=== PATIENT | female | born 1965 | race Caucasian/White ===

== ENCOUNTER 2018-11-26 10:38 | Emergency (ER) | payer SELFPAY ==
[~2018-11-26] VITALS: Ht 180.3 cm; Wt 163.3 kg
[2018-11-26] MEDS ORDERED: DILTIAZEM 25 MG/5 ML INJ (CARDIZEM) VIAL IVP ONE (11:15)
[2018-11-26] MEDS ORDERED: NS IV 1000 ML 1,000 ML IV SCH (11:15)
--- NOTE | 2018-11-26 11:36 | ED General ---
General Stated Complaint: SWEATING,IRREGULAR HEART BEAT History of Present Illness Date Seen by Provider: November 26, 2018 Time Seen by Provider: 11:30 Initial Comments Patient is a 53-year-old female who awoke this morning at 4:00 with palpitations. She states she felt a little bit lightheaded and had some inexplicable diaphoresis. She went about her morning but her symptoms continued so she decided to come to the ER. No chest pain or shortness of breath. The patient has no heart history that she is aware of. She states she did have one episode several years earlier when she was evaluated for palpitations but was told she only had anxiety at that time. The only medication she takes his metoprolol twice daily. No recent fever or chills or cough. No recent travel. No nausea or vomiting. No abdominal pain. Allergies and Home Medications Allergies Coded Allergies: diphenhydramine (Verified Allergy, Unknown, 11/26/18) Patient Home Medication List Home Medication List Reviewed: Yes Review of Systems Review of Systems Constitutional: no symptoms reported EENTM: no symptoms reported Respiratory: no symptoms reported Cardiovascular: palpitations Genitourinary: no symptoms reported Musculoskeletal: no symptoms reported Skin: no symptoms reported Psychiatric/Neurological: No Symptoms Reported Hematologic/Lymphatic: No Symptoms Reported All Other Systems Reviewed Negative Unless Noted: Yes Physical Exam Vital Signs Capillary Refill : Height, Weight, BMI Height: '" Weight: lbs. oz. kg; BMI Method: General Appearance: No Apparent Distress, WD/WN HEENT: PERRL/EOMI, TMs Normal Neck: Full Range of Motion, Normal Inspection Respiratory: Chest Non Tender, Lungs Clear Cardiovascular: No Edema, No Gallop, No Murmur, Normal Peripheral Pulses (irregular and tachycardic heart rate in the 140s) Gastrointestinal: Normal Bowel Sounds Extremity: Normal Capillary Refill, Non Tender Neurologic/Psychiatric: Alert, Oriented x3 Skin: Normal Color Progress/Results/Core Measures Suspected Sepsis SIRS Temperature: Pulse: Respiratory Rate: Laboratory Tests 11/26/18 11:40: White Blood Count 8.3 Blood Pressure / Mean: Laboratory Tests 11/26/18 11:40: Creatinine 0.89, Platelet Count 263 Results/Orders Lab Results Laboratory Tests Test 11/26/18 11:40 11/26/18 13:40 Range/Units White Blood Count 8.3 4.3-11.0 10^3/uL Red Blood Count 4.81 4.35-5.85 10^6/uL Hemoglobin 14.1 11.5-16.0 G/DL Hematocrit 43 35-52 % Mean Corpuscular Volume 89 80-99 FL Mean Corpuscular Hemoglobin 29 25-34 PG Mean Corpuscular Hemoglobin Concent 33 32-36 G/DL Red Cell Distribution Width 13.5 10.0-14.5 % Platelet Count 263 130-400 10^3/uL Mean Platelet Volume 10.3 7.4-10.4 FL Neutrophils (%) (Auto) 71 42-75 % Lymphocytes (%) (Auto) 22 12-44 % Monocytes (%) (Auto) 6 0-12 % Eosinophils (%) (Auto) 1 0-10 % Basophils (%) (Auto) 1 0-10 % Neutrophils # (Auto) 5.9 1.8-7.8 X 10^3 Lymphocytes # (Auto) 1.8 1.0-4.0 X 10^3 Monocytes # (Auto) 0.5 0.0-1.0 X 10^3 Eosinophils # (Auto) 0.1 0.0-0.3 10^3/uL Basophils # (Auto) 0.0 0.0-0.1 10^3/uL Sodium Level 143 135-145 MMOL/L Potassium Level 4.2 3.6-5.0 MMOL/L Chloride Level 106 98-107 MMOL/L Carbon Dioxide Level 22 21-32 MMOL/L Anion Gap 15 H 5-14 MMOL/L Blood Urea Nitrogen 16 7-18 MG/DL Creatinine 0.89 0.60-1.30 MG/DL Estimat Glomerular Filtration Rate > 60 BUN/Creatinine Ratio 18 Glucose Level 124 H 70-105 MG/DL Calcium Level 9.2 8.5-10.1 MG/DL Troponin T 11 H 14 H <=10 NG/L Thyroid Stimulating Hormone (TSH) 2.31 0.35-4.94 UIU/ML My Orders Orders - EUNICE TRAVIS DO Cbc With Automated Diff (11/26/18 11:13) Basic Metabolic Panel (11/26/18 11:13) Troponin T (11/26/18 11:13) Ekg Tracing (11/26/18 11:13) Thyroid Stimulating Hormone (11/26/18 11:13) Ns Iv 1000 Ml (Sodium Chloride 0.9%) (11/26/18 11:15) Diltiazem Injection (Cardizem Injection) (11/26/18 11:15) Troponin T (11/26/18 13:40) Ekg Tracing (11/26/18 14:23) Medications Given in ED Current Medications Medications Dose Ordered Sig/Eusebio Route Start Time Stop Time Status Last Admin Dose Admin Diltiazem HCl 10 mg ONCE ONCE IVP 11/26/18 11:15 11/26/18 11:16 DC 11/26/18 12:04 10 MG Vital Signs/I&O Capillary Refill : Progress Note : Time: 11:32 Progress Note Patient is seen and examined. She is in no distress and has stable blood pressure but her heart rate is in the 140s and is irregular. IV fluids ordered along with basic labs and EKG. 13:30: Patient was given 1 dose of Cardizem IV. Her heart slowed to a normal sinus rhythm with a rate of 77. The patient had relief of symptoms. She was given 1 L of normal saline. Currently, her labs are reviewed. Her troponin is 11 which is 1 point outside the normal range by our lab standards. Will repeat troponin at the two-hour kalen. Thyroid studies are collected and sent to [facility] but will not be returned during this ED visit. 14:45: Second troponin continues to be mildly elevated but close to the upper limit of normal. It is not significantly elevating. Repeat EKG, the third EKG this ER visit, also reveals no changes and no ischemia. Patient does not have chest pain or shortness of breath. Plan is for discharge home. She is advised follow-up with her primary care doctor and follow-up on her thyroid study results. Otherwise, return to the emergency department for any new or worsening symptoms. ECG Initial ECG Impression Date: November 26, 2018 Initial ECG Impression Time: 11:05 Initial ECG Rhythm: S.Tach EKG : EKG Time: 12:20 Rate: 77 Rhythm: Normal Sinus Departure Impression Primary Impression: Sinus tachycardia Disposition: 01 HOME, SELF-CARE Condition: Improved Departure-Patient Inst. Referrals: ANNA BURGESS MD (PCP/Family) Primary Care Physician EUNICE TRAVIS DO November 26, 2018 11:36
[2018-11-26 11:52] LABS: HEMATOCRIT 43 % (35-52); HEMOGLOBIN 14.1 G/DL (11.5-16.0); MEAN CORPUSCULAR HEMOGLOBIN 29 PG (25-34); MEAN CORPUSCULAR HGB CONC 33 G/DL (32-36); MEAN CORPUSCULAR VOLUME 89 FL (80-99); MEAN PLATELET VOLUME 10.3 FL (7.4-10.4); PLATELET COUNT 263 10^3/uL (130-400); RED CELL DISTRIBUTION WIDTH 13.5 % (10.0-14.5); WHITE BLOOD COUNT 8.3 10^3/uL (4.3-11.0)
[2018-11-26 11:53] LABS: BASOPHILS % (AUTO) 1 % (0-10); EOSINOPHILS # (AUTO) 0.1 10^3/uL (0.0-0.3); EOSINOPHILS % (AUTO) 1 % (0-10); LYMPHOCYTES # (AUTO) 1.8 X 10^3 (1.0-4.0); LYMPHOCYTES % (AUTO) 22 % (12-44); MONOCYTES # (AUTO) 0.5 X 10^3 (0.0-1.0); MONOCYTES % (AUTO) 6 % (0-12); NEUTROPHILS # (AUTO) 5.9 X 10^3 (1.8-7.8); NEUTROPHILS % (AUTO) 71 % (42-75)
[2018-11-26 12:15] LABS: BUN/CREATININE RATIO 18; CALCIUM 9.2 MG/DL (8.5-10.1); CARBON DIOXIDE 22 MMOL/L (21-32); CHLORIDE 106 MMOL/L (98-107); CREATININE SERUM 0.89 MG/DL (0.60-1.30); GFR ESTIMATED > 60; GLUCOSE 124 MG/DL (70-105); POTASSIUM 4.2 MMOL/L (3.6-5.0); SODIUM 143 MMOL/L (135-145)
[2018-11-26 15:18] VITALS: BP 153/93
== END 2018-11-26 15:25 | disposition home or self-care (01) ==
LOC: ER FS 10:40
DX: R00.0 Tachycardia, unspecified (principal); F41.9 Anxiety disorder, unspecified; Z88.8 Allergy status to other drugs, medicaments and biological substances
CPT/HCPCS: 36415; 80048; 84443; 84484; 85025; 93005

== ENCOUNTER 2019-08-16 10:07 | Emergency (ER) | payer SELFPAY ==
[~2019-08-16] VITALS: Ht 180.3 cm; Wt 142.3 kg
--- NOTE | 2019-08-16 10:12 | ED General ---
General Stated Complaint: IRREGULAR HEARTBEAT History of Present Illness Date Seen by Provider: Aug 16, 2019 Time Seen by Provider: 10:11 Initial Comments Patient presenting to emergency department for evaluation of palpitations that she says she started feeling last evening and they lasted all the way through the night but she was able to sleep through it and there were present again this morning when she woke up. She said it felt like a rapid heartbeat that she could not measure. She said she put some sort of blood pressure cuff on and her heart rate trended in the 140 range and it said irregular. She says that she took her metoprolol earlier this morning and decided to come to the emergency department for evaluation and that her palpitations stopped shortly after arriving here. She says that she had no other symptoms besides the palpitations including no chest pain shortness of breath diaphoresis nausea vomiting. She said she may have had several bowel movements last night and her palpitations may have started during one of the bowel movements. She says that she had this twice before in the past and the first time she saw a provider network analyst and had an echocardiogram and heart monitor that came back normal and the second time she was seen here on November 26, 2018 and it appears there are for EKGs in the system. It appears that the computer called her first EKG atrial fibrillation with RVR and she was given a dose of 10 mg of Cardizem and her heart rate changed shortly afterwards to a normal sinus rhythm. I reviewed the EKG and it is somewhat difficult to interpret as the baseline wavers and his rapid I feel that I'm seeing P waves this could be an a flutter certainly atrial for ablation is a possibility as well as there is irregular intervals in between her QRS complexes. She is currently in no obvious distress with normal vital signs. Allergies and Home Medications Allergies Coded Allergies: diphenhydramine (Verified Allergy, Unknown, 11/26/18) Patient Home Medication List Home Medication List Reviewed: Yes Review of Systems Review of Systems Constitutional: no symptoms reported EENTM: no symptoms reported Respiratory: no symptoms reported Cardiovascular: palpitations Gastrointestinal: no symptoms reported Genitourinary: no symptoms reported Musculoskeletal: no symptoms reported Skin: no symptoms reported Psychiatric/Neurological: No Symptoms Reported All Other Systems Reviewed Negative Unless Noted: Yes Past Ufkdsmw-Knbjzr-Ujjoqx Hx Patient Social History 2nd Hand Smoke Exposure: No Recent Foreign Travel: No Seasonal Allergies Seasonal Allergies: No Past Medical History Surgeries: Yes Gallbladder, Tonsillectomy Respiratory: No Cardiac: Yes Hypertension Neurological: No Genitourinary: No Gastrointestinal: Yes Gastroesophageal Reflux, Hiatal Hernia Musculoskeletal: No Endocrine: No HEENT: No Cancer: No Psychosocial: Yes Anxiety Integumentary: No Blood Disorders: No Physical Exam Vital Signs Vital Signs - First Documented 08/16/19 10:19 Temp 36.7 Pulse 82 Resp 22 B/P (MAP) 125/80 (95) Pulse Ox 98 O2 Delivery Room Air Capillary Refill : Height, Weight, BMI Height: 5'11.00" Weight: 360lbs. oz. 163.273043sr; BMI Method:Stated General Appearance: No Apparent Distress, WD/WN HEENT: PERRL/EOMI Neck: Supple Respiratory: Normal Breath Sounds, No Respiratory Distress Cardiovascular: Regular Rate, Rhythm, No Edema, No Murmur Gastrointestinal: Soft Back: Normal Inspection Extremity: Normal Capillary Refill Neurologic/Psychiatric: Alert, Oriented x3 Skin: Warm/Dry Progress/Results/Core Measures Suspected Sepsis SIRS Temperature: Pulse: Respiratory Rate: Laboratory Tests 08/16/19 10:54: White Blood Count 8.7 Blood Pressure / Mean: Laboratory Tests 08/16/19 10:54: Creatinine 1.03, INR Comment 0.9, Platelet Count 288, Total Bilirubin 0.4 Results/Orders Lab Results Laboratory Tests Test 08/16/19 10:54 Range/Units White Blood Count 8.7 4.3-11.0 10^3/uL Red Blood Count 5.09 4.35-5.85 10^6/uL Hemoglobin 15.2 11.5-16.0 G/DL Hematocrit 46 35-52 % Mean Corpuscular Volume 90 80-99 FL Mean Corpuscular Hemoglobin 30 25-34 PG Mean Corpuscular Hemoglobin Concent 33 32-36 G/DL Red Cell Distribution Width 14.2 10.0-14.5 % Platelet Count 288 130-400 10^3/uL Mean Platelet Volume 10.1 7.4-10.4 FL Neutrophils (%) (Auto) 63 42-75 % Lymphocytes (%) (Auto) 27 12-44 % Monocytes (%) (Auto) 7 0-12 % Eosinophils (%) (Auto) 1 0-10 % Basophils (%) (Auto) 1 0-10 % Neutrophils # (Auto) 5.5 1.8-7.8 X 10^3 Lymphocytes # (Auto) 2.4 1.0-4.0 X 10^3 Monocytes # (Auto) 0.6 0.0-1.0 X 10^3 Eosinophils # (Auto) 0.1 0.0-0.3 10^3/uL Basophils # (Auto) 0.1 0.0-0.1 10^3/uL Prothrombin Time 13.0 12.2-14.7 SEC INR Comment 0.9 0.8-1.4 Activated Partial Thromboplast Time 24 24-35 SEC Sodium Level 141 135-145 MMOL/L Potassium Level 4.5 3.6-5.0 MMOL/L Chloride Level 103 98-107 MMOL/L Carbon Dioxide Level 28 21-32 MMOL/L Anion Gap 10 5-14 MMOL/L Blood Urea Nitrogen 25 H 7-18 MG/DL Creatinine 1.03 0.60-1.30 MG/DL Estimat Glomerular Filtration Rate 56 BUN/Creatinine Ratio 24 Glucose Level 111 H 70-105 MG/DL Calcium Level 9.5 8.5-10.1 MG/DL Corrected Calcium 9.4 8.5-10.1 MG/DL Magnesium Level 2.1 1.6-2.4 MG/DL Total Bilirubin 0.4 0.1-1.0 MG/DL Aspartate Amino Transf (AST/SGOT) 12 5-34 U/L Alanine Aminotransferase (ALT/SGPT) 22 0-55 U/L Alkaline Phosphatase 53 40-136 U/L Troponin I < 0.30 <0.30 NG/ML Pro-B-Type Natriuretic Peptide 1760.0 H <75.0 PG/ML Total Protein 7.0 6.4-8.2 GM/DL Albumin 4.1 3.2-4.5 GM/DL My Orders Orders - HEATHER BOSS DO Ekg Tracing (08/16/19 10:24) Cbc With Automated Diff (08/16/19 10:48) Comprehensive Metabolic Panel (08/16/19 10:48) Troponin I Fs (08/16/19 10:48) Probnp Fs (08/16/19 10:48) Partial Thromboplastin Time (08/16/19 10:48) Protime With Inr (08/16/19 10:48) Magnesium (08/16/19 10:48) Vital Signs/I&O 08/16/19 10:19 Temp 36.7 Pulse 82 Resp 22 B/P (MAP) 125/80 (95) Pulse Ox 98 O2 Delivery Room Air Capillary Refill : Progress Note : Progress Note I spoke to the provider network analyst application technical designer Dr. Gonzalez about patient's presentation and he agrees that this likely is in A. fib or a flutter given patient's presentation and prior EKG. Certainly SVT is a possibility as well as a sinus tach. He did recommend getting some blood work to evaluate for ischemia and he said if her troponin is negative she likely could follow-up as an outpatient and did recommend changing her from metoprolol to Cardizem and starting her on Eliquis for stroke prophylaxis. Patient was informed and she is agreeable to plan. Patient's troponin is normal and I do not suspect acute coronary syndrome however her BNP is elevated. BNP is likely elevated from her arrhythmia rather than heart failure in my opinion but she will likely need echocardiogram as an outpatient. She appears well with normal vital signs at 9 physical exam and workup so she will be discharged in stable condition an outpatient cartilage follow-up was made with Dr. Gonzalez for later this afternoon at 1:30 which would be 1 hour after her discharge. I will go ahead and prescribe her the medications and told her she can come back to emergency department at any time with any new or worsening concerns. Patient aware and agreeable with plan and verbalized understanding of the above instructions. Departure Impression Primary Impression: Palpitations Additional Impression: Elevated brain natriuretic peptide (BNP) level Disposition: 01 HOME, SELF-CARE Condition: Stable Departure-Patient Inst. Referrals: ANNA BURGESS MD (PCP/Family) Primary Care Physician Patient Instructions: Palpitations (DC) Add. Discharge Instructions: Wait until after seeing the provider network analyst to fill your meds to make sure he agrees with treatment plan. Thank you! Scripts Diltiazem HCl (Cardizem LA) 180 Mg Tab.er.24h 180 MG PO DAILY for 30 Days, TAB Prov: HEATHER BOSS DO 08/16/19 Apixaban (Eliquis) 5 Mg Tablet 5 MG PO BID for 30 Days, #60 TAB TAKE 2 TABLETS BID X 7 DAYS, THEN 1 TABLET BID Prov: HEATHER BOSS DO 08/16/19 HEATHER BOSS DO Aug 16, 2019 10:12
[2019-08-16 11:07] LABS: HEMATOCRIT 46 % (35-52); HEMOGLOBIN 15.2 G/DL (11.5-16.0); MEAN CORPUSCULAR HEMOGLOBIN 30 PG (25-34); MEAN CORPUSCULAR HGB CONC 33 G/DL (32-36); MEAN CORPUSCULAR VOLUME 90 FL (80-99); PLATELET COUNT 288 10^3/uL (130-400); RED CELL DISTRIBUTION WIDTH 14.2 % (10.0-14.5); WHITE BLOOD COUNT 8.7 10^3/uL (4.3-11.0)
[2019-08-16 11:08] LABS: BASOPHILS # (AUTO) 0.1 10^3/uL (0.0-0.1); BASOPHILS % (AUTO) 1 % (0-10); EOSINOPHILS # (AUTO) 0.1 10^3/uL (0.0-0.3); EOSINOPHILS % (AUTO) 1 % (0-10); LYMPHOCYTES # (AUTO) 2.4 X 10^3 (1.0-4.0); LYMPHOCYTES % (AUTO) 27 % (12-44); MEAN PLATELET VOLUME 10.1 FL (7.4-10.4); MONOCYTES # (AUTO) 0.6 X 10^3 (0.0-1.0); MONOCYTES % (AUTO) 7 % (0-12); NEUTROPHILS # (AUTO) 5.5 X 10^3 (1.8-7.8); NEUTROPHILS % (AUTO) 63 % (42-75)
[2019-08-16 11:21] LABS: INR 0.9 (0.8-1.4)
[2019-08-16 11:45] LABS: ALANINE AMINOTRANSFERASE 22 U/L (0-55); ALKALINE PHOSPHATASE 53 U/L (40-136); BUN/CREATININE RATIO 24; CALCIUM 9.5 MG/DL (8.5-10.1); CARBON DIOXIDE 28 MMOL/L (21-32); CHLORIDE 103 MMOL/L (98-107); CREATININE SERUM 1.03 MG/DL (0.60-1.30); GFR ESTIMATED 56; GLUCOSE 111 MG/DL (70-105); MAGNESIUM 2.1 MG/DL (1.6-2.4); POTASSIUM 4.5 MMOL/L (3.6-5.0); SODIUM 141 MMOL/L (135-145)
[2019-08-16 11:46] LABS: ALBUMIN 4.1 GM/DL (3.2-4.5); BILIRUBIN,TOTAL 0.4 MG/DL (0.1-1.0)
[2019-08-16] MEDS ORDERED: APIX5TAB PO (12:00)
[2019-08-16] MEDS ORDERED: DILT180T PO (12:00)
--- NOTE | 2019-08-16 12:09 | NUR ---
Appointment was made with Dr. Coleman today at 1330. Pt was informed to bring all medications (prescribed and over the counter), ID, insurance card (if she has one).
[2019-08-16 12:10] VITALS: BP 125/80
== END 2019-08-16 12:10 | disposition home or self-care (01) ==
LOC: EDUNIT# 10:07 → ER FS 10:08
DX: R00.2 Palpitations (principal); R79.89 Other specified abnormal findings of blood chemistry; I10 Essential (primary) hypertension; Z88.8 Allergy status to other drugs, medicaments and biological substances; Z90.89 Acquired absence of other organs
CPT/HCPCS: 36415; 80053; 83735; 83880; 84484; 85025; 85610; 85730; 93005

== ENCOUNTER → 2019-08-17 | Outpatient (CLI) | payer SELFPAY ==
[~2019-08-17] MED LIST: APIX5TAB PO; DILT180T PO
== END ==
LOC: LAB FS 09:18
PROVIDERS: ATTEND Internal Medicine Cardiovascular Disease
DX: I48.0 Paroxysmal atrial fibrillation (principal); E66.9 Obesity, unspecified; I10 Essential (primary) hypertension
CPT/HCPCS: 36415; 84443

== ENCOUNTER 2019-08-19 05:31 | Emergency (ER) | payer SELFPAY ==
[~2019-08-19] VITALS: Ht 180.3 cm; Wt 139.0 kg
--- NOTE | 2019-08-19 06:10 | ED Cardiac General ---
History of Present Illness General Chief Complaint: Cardiac/General Problems Stated Complaint: HIGH BLOOD PRESSURE Nursing Triage Note: PT. WAS SEEN IN THE ER LAST TUESDAY WITH A-FIB AND WAS SENT TO SEE A PAINT STOCKMAN ON TUESDAY AND WAS STARTED ON A NEW MEDICATION CALLED CARTIA. PT. STATED SHE CAN FEEL HER HEART BEATING AND THE BLOOD RUNNING THROUGH HER VEINS AND STATED SHE FEELS LIKE THERE IS SOMETHING WRONG. Source: patient History of Present Illness Date Seen by Provider: Aug 19, 2019 Time Seen by Provider: 06:05 Initial Comments Patient is a 54 y/o female who comes to the ER this morning c/o feeling palpitations and feeling "shaky." Patient had episodic symptoms overnight while trying to sleep. She describes feeling like her heart was "pounding" and beating faster than normal. C/o that she could feel her heart beat in her neck. Symptoms caused her to feel very anxious. She has had similar symptoms recently for which she was evaluated for three days earlier. Her workup was negative and she was subsequently evaluated by cardiology who placed her on diltiazem. She has known hx of a-fib for which she had recently been treated with metoprolol until a few days earlier. She denies chest pain, SOB, MACDONALD. She does have known hx of anxiety but feels these sx are different from her normal anxiety symptoms. Allergies and Home Medications Allergies Coded Allergies: diphenhydramine (Verified Allergy, Unknown, 11/26/18) hydrocodone (Verified Allergy, Unknown, 08/19/19) Home Medications Apixaban 5 Mg Tablet, 5 MG PO BID TAKE 2 TABLETS BID X 7 DAYS, THEN 1 TABLET BID Prescribed by: HEATHER BOSS on 08/16/19 1200 Diltiazem HCl 180 Mg Tab.er.24h, 180 MG PO DAILY Prescribed by: HEATHER BOSS on 08/16/19 1200 Patient Home Medication List Home Medication List Reviewed: Yes Review of Systems Review of Systems Constitutional: no symptoms reported EENTM: No Symptoms Reported Respiratory: No Symptoms Reported Cardiovascular: See HPI Gastrointestinal: No Symptoms Reported Musculoskeletal: no symptoms reported Skin: no symptoms reported Psychiatric/Neurological: Anxiety Endocrine: No Symptoms Reported All Other Systems Reviewed Negative Unless Noted: Yes Past Jkljziy-Pkfnwx-Ulybbm Hx Patient Social History 2nd Hand Smoke Exposure: No Recent Foreign Travel: No Contact w/Someone Who Travel: No Recent Infectious Disease Expo: No Recent Hopitalizations: No Physical Abuse: No Sexual Abuse: No Mistreated: No Fear: No Seasonal Allergies Seasonal Allergies: Yes Past Medical History Surgeries: Yes Gallbladder, Tonsillectomy Respiratory: No Cardiac: Yes Atrial Fibrillation, Hypertension Neurological: No Genitourinary: No Gastrointestinal: Yes Gastroesophageal Reflux, Hiatal Hernia Musculoskeletal: No Endocrine: No HEENT: No Cancer: No Psychosocial: Yes Anxiety Integumentary: No Blood Disorders: No Physical Exam Vital Signs Vital Signs - First Documented 08/19/19 05:40 Temp 36.1 Pulse 87 B/P (MAP) 135/96 (109) Pulse Ox 97 O2 Delivery Room Air Capillary Refill : Less Than 3 Seconds Height, Weight, BMI Height: 5'11.00" Weight: 360lbs. oz. 163.259396nc; 42.00 BMI Method:Stated General Appearance: No Apparent Distress, WD/WN Neck: Full Range of Motion Respiratory: Chest Non Tender, Lungs Clear Cardiovascular: Regular Rate, Rhythm, No JVD, No Murmur Extremity: Normal Capillary Refill Neurologic/Psychiatric: Alert, Oriented x3 Skin: Normal Color, Warm/Dry Progress/Results/Core Measures Results/Orders Lab Results Laboratory Tests Test 08/19/19 06:15 Range/Units Sodium Level 141 135-145 MMOL/L Potassium Level 4.2 3.6-5.0 MMOL/L Chloride Level 104 98-107 MMOL/L Carbon Dioxide Level 25 21-32 MMOL/L Anion Gap 12 5-14 MMOL/L Blood Urea Nitrogen 16 7-18 MG/DL Creatinine 0.83 0.60-1.30 MG/DL Estimat Glomerular Filtration Rate > 60 BUN/Creatinine Ratio 19 Glucose Level 115 H 70-105 MG/DL Calcium Level 9.4 8.5-10.1 MG/DL Troponin I < 0.30 <0.30 NG/ML My Orders Orders - EUNICE TRAVIS DO Ekg Tracing (08/19/19 06:04) Basic Metabolic Panel (08/19/19 06:04) Troponin I Fs (08/19/19 06:04) Vital Signs/I&O 08/19/19 05:40 Temp 36.1 Pulse 87 B/P (MAP) 135/96 (109) Pulse Ox 97 O2 Delivery Room Air Blood Pressure Mean: 109 Progress Progress Note : Time: 06:09 Progress Note Patient is seen and examined. Normal exam although she is anxious during the interview. She was offered anxiolytic medication but declines. Physical exam is normal. Vitals normal and EKG is NSR on telemetry. Will do EKG, trop, BMP. 06:45: All results reviewed. No acute findings. EKG normal. Vitals continue to be normal. No arrhythmia on telemetry. BMP stable. Trop not elevated. Plan is for d/c to home. Patient given reassurance that she is ok. Unclear etiology for her presentation. Recommended to f/u with PCP or medical accountant. Return to the ER prn. All of her questions are answered prior to d/c and she is agreeable to the plan of care. Initial ECG Impression Date: Aug 19, 2019 Initial ECG Impression Time: 06:11 Initial ECG Rate: 83 Initial ECG Impression: Normal Departure Impression Primary Impression: Atrial fibrillation Disposition: 01 HOME, SELF-CARE Condition: Stable Departure-Patient Inst. Referrals: ANNA BURGESS MD (PCP/Family) Primary Care Physician EUNICE TRAVIS DO Aug 19, 2019 06:10
[2019-08-19 06:39] LABS: BUN/CREATININE RATIO 19; CALCIUM 9.4 MG/DL (8.5-10.1); CARBON DIOXIDE 25 MMOL/L (21-32); CHLORIDE 104 MMOL/L (98-107); CREATININE SERUM 0.83 MG/DL (0.60-1.30); GFR ESTIMATED > 60; GLUCOSE 115 MG/DL (70-105); POTASSIUM 4.2 MMOL/L (3.6-5.0); SODIUM 141 MMOL/L (135-145)
[2019-08-19 06:46] VITALS: BP 137/67
--- OUTSIDE RECORDS SUMMARY | 2019-08-27 09:26 | XMS REPORT | Continuity of Care Document ---
Author Organization Unknown Address Unknown Phone Unavailable Allergies Active Description Code Type Severity Reaction Onset Reported/Identified Relationship to Patient Clinical Status Yes diphenhydramine [id number] D rug Allergy Unknown N/A 11/26/2018 Yes hydrocodone [id number] Drug Aller gy Unknown N/A 08/19/2019 Medications There is no data. Problems Date Dx Coded Attending Type Code Diagnosis Diagnosed By 11/26/2018 EUNICE TRAVIS DO, Ot F41 .9 ANXIETY DISORDER, UNSPECIFIED 11/26/2018 EUNICE TRAVIS DO Ot R00 .0 TACHYCARDIA, UNSPECIFIED 11/26/2018 EUNICE TRAVIS DO Ot Z88 .8 ALLERGY STATUS TO OTH DRUG/MEDS/BIOL SUB 11/28/2018 EUNICE TRAVIS DO, Ot F41 .9 ANXIETY DISORDER, UNSPECIFIED 11/28/2018 EUNICE TRAVIS DO Ot R00 .0 TACHYCARDIA, UNSPECIFIED 11/28/2018 EUNICE TRAVIS DO Ot Z88 .8 ALLERGY STATUS TO OTH DRUG/MEDS/BIOL SUB 08/16/2019 HEATHER BOSS DO Ot I10 ESSENTIAL (PRIMARY) HYPERTENSION 08/16/2019 HEATHER BOSS DO Ot R00 .2 PALPITATIONS 08/16/2019 HEATHER BOSS DO Ot R79.89 OTHER SPECIFIED ABNORMAL FINDINGS OF BLO 08/16/2019 HEATHER BOSS DO Ot Z88 .8 ALLERGY STATUS TO OTH DRUG/MEDS/BIOL SUB 08/16/2019 HEATHER BOSS DO Ot Z90.89 ACQUIRED ABSENCE OF OTHER ORGANS 08/20/2019 HEATHER BOSS DO Ot I10 ESSENTIAL (PRIMARY) HYPERTENSION 08/20/2019 HEATHER BOSS DO Ot R00 .2 PALPITATIONS 08/20/2019 HEATHER BOSS DO Ot R79.89 OTHER SPECIFIED ABNORMAL FINDINGS OF BLO 08/20/2019 HEATHER BOSS DO Ot Z88 .8 ALLERGY STATUS TO OTH DRUG/MEDS/BIOL SUB 08/20/2019 HEATHER BOSS DO Ot Z90.89 ACQUIRED ABSENCE OF OTHER ORGANS 08/20/2019 FRIDA MADRIGAL [facility], [facility] Ot E66.9 OBESITY, UNSPECIFIED 08/20/2019 FRIDA MADRIGAL [facility], [facility] Ot I10 ESSENTIAL (PRIMARY) HYPERTENSION 08/20/2019 FRIDA MADRIGAL [facility], [facility] Ot I48.0 PAROXYSMAL ATRIAL FIBRILLATION Procedures There is no data. Results Test Result Range Complete blood count (CBC) with automate d white blood cell (WBC) differential - 11/26/18 11:40 Blood leukocytes automated count (number/volume) 8.3 10*3/uL 4.3-11.0 Blood erythrocytes automated count (number/volume) 4.81 10*6/uL 4.35-5.85 Venous blood hemoglobin measurement (mass/volume) 14.1 g/dL 11.5-16.0 Blood hematocrit (volume fraction) 43 % 35-52 Automated erythrocyte mean corpuscular volume 89 [ foz_us] 80-99 Automated erythrocyte mean corpuscular h emoglobin (mass per erythrocyte) 29 pg 25-34 Automated erythrocyte mean corpuscular h emoglobin concentration measurement (mass/volume) 33 g/dL 32-36 Automated erythrocyte distribution width ratio 13. 5 % 10.0- 14.5 Automated blood platelet count (count/volume) 263 10*3/uL 130-400 Automated blood platelet mean volume measurement 10.3 [foz_us] 7.4-10.4 Automated blood neutrophils/100 leukocytes 71 % 42-75 Automated blood lymphocytes/100 leukocytes 22 % 12-44 Blood monocytes/100 leukocytes 6 % 0-12 Automated blood eosinophils/100 leukocytes 1 % 0-10 Automated blood basophils/100 leukocytes 1 % 0-10 Blood neutrophils automated count (number/volume) 5.9 10*3 1.8-7.8 Blood lymphocytes automated count (number/volume) 1.8 10*3 1.0-4.0 Blood monocytes automated count (number/volume) 0. 5 10*3 0.0-1.0 Automated eosinophil count 0.1 10*3/uL 0 .0-0.3 Automated blood basophil count (count/volume) 0.0 10*3/uL 0.0-0.1 Whole blood basic metabolic panel - 11/08 03/29 11:40 Serum or plasma sodium measurement (moles/volume) 143 mmol/L 135-145 Serum or plasma potassium measurement (moles/volume) 4.2 mmol/L 3.6-5.0 Serum or plasma chloride measurement (moles/volume) 106 mmol/L 98-107 Carbon dioxide 22 mmol/L 21-32 Serum or plasma anion gap determination (moles/volume) 15 mmol/L 5-14 Serum or plasma urea nitrogen measurement (mass/volume ) 16 mg/dL 7-18 Serum or plasma creatinine measurement (mass/volume) 0.89 mg/dL 0.60-1.30 Serum or plasma urea nitrogen/creatinine mass ratio 18 NRG Serum or plasma creatinine measurement w ith calculation of estimated glomerular filtration rate > NRG Serum or plasma glucose measurement (mass/volume) 124 mg/dL 70-105 Serum or plasma calcium measurement (mass/volume) 9.2 mg/dL 8.5-10.1 TROPONIN T - 11/26/18 11:40 TROPONIN T 11 % <=10 THYROID STIMULATING HORMONE - 11/26/18 1 1:40 THYROID STIMULATING HORMONE 2.31 u[iU]/mL 0.35-4.94 TROPONIN T - 11/26/18 13:40 TROPONIN T 14 % <=10 LIPID PANEL - 12/08/18 08:43 CHOLESTEROL, TOTAL 141 mg/dL <200 HDL CHOLESTEROL 54 mg/dL >50 TRIGLYCERIDES 81 mg/dL <150 LDL-CHOLESTEROL 71 mg/dL (calc) NRG CHOL/HDLC RATIO 2.6 (calc) <5.0 NON HDL CHOLESTEROL 87 mg/dL (calc) <130 CMP - 12/08/18 08:43 GLUCOSE 110 mg/dL 65-99 UREA NITROGEN (BUN) 16 mg/dL 7-25 CREATININE 0.79 mg/dL 0.50-1.05 eGFR NON-AFR. SWAZI 86 mL/min/1.73m2 > OR = 60 eGFR 100 mL/min/1.73m2 > OR = 60 BUN/CREATININE RATIO NOT APPLICABLE (calc) 6-22 SODIUM 137 mmol/L 135-146 POTASSIUM 4.3 mmol/L 3.5-5.3 CHLORIDE 106 mmol/L 98-110 CARBON DIOXIDE 20 mmol/L 20-32 CALCIUM 9.3 mg/dL 8.6-10.4 PROTEIN, TOTAL 6.8 g/dL 6.1-8.1 ALBUMIN 4.0 g/dL 3.6-5.1 GLOBULIN 2.8 g/dL (calc) 1.9-3.7 ALBUMIN/GLOBULIN RATIO 1.4 (calc) 1.0-2. 5 BILIRUBIN, TOTAL 0.7 mg/dL 0.2-1.2 ALKALINE PHOSPHATASE 49 U/L 33-130 AST 16 U/L 10-35 ALT 15 U/L 6-29 CBC - 12/08/18 08:43 WHITE BLOOD CELL COUNT 7.8 Thousand/uL 3 .8-10.8 RED BLOOD CELL COUNT 4.93 Million/uL 3.8 0-5.10 HEMOGLOBIN 14.5 g/dL 11.7-15.5 HEMATOCRIT 43.5 % 35.0-45.0 MCV 88.2 fL 80.0-100.0 MCH 29.4 pg 27.0-33.0 MCHC 33.3 g/dL 32.0-36.0 RDW 13.6 % 11.0-15.0 PLATELET COUNT 238 Thousand/uL 140-400 MPV 11.1 fL 7.5-12.5 ABSOLUTE NEUTROPHILS 4696 cells/uL 1500- 7800 ABSOLUTE LYMPHOCYTES 2356 cells/uL 850-3 900 ABSOLUTE MONOCYTES 499 cells/uL 200-950 ABSOLUTE EOSINOPHILS 187 cells/uL 15-500 ABSOLUTE BASOPHILS 62 cells/uL 0-200 NEUTROPHILS 60.2 % NRG LYMPHOCYTES 30.2 % NRG MONOCYTES 6.4 % NRG EOSINOPHILS 2.4 % NRG BASOPHILS 0.8 % NRG DIFFERENTIAL, MANUAL - 06/20/19 08:50 ABSOLUTE NEUTROPHILS 4092 cells/uL 1500- 7800 ABSOLUTE MONOCYTES 462 cells/uL 200-950 ABSOLUTE EOSINOPHILS 264 cells/uL 15-500 ABSOLUTE BASOPHILS 0 cells/uL 0-200 NEUTROPHILS 62.0 % NRG LYMPHOCYTES 27.0 % NRG MONOCYTES 7.0 % NRG EOSINOPHILS 4.0 % NRG BASOPHILS 0 % NRG ABSOLUTE LYMPHOCYTES 1782 cells/uL 850-3 900 Complete blood count (CBC) with automate d white blood cell (WBC) differential - 08/16/19 10:54 Blood leukocytes automated count (number/volume) 8.7 10*3/uL 4.3-11.0 Blood erythrocytes automated count (number/volume) 5.09 10*6/uL 4.35-5.85 Venous blood hemoglobin measurement (mass/volume) 15.2 g/dL 11.5-16.0 Blood hematocrit (volume fraction) 46 % 35-52 Automated erythrocyte mean corpuscular volume 90 [ foz_us] 80-99 Automated erythrocyte mean corpuscular h emoglobin (mass per erythrocyte) 30 pg 25-34 Automated erythrocyte mean corpuscular h emoglobin concentration measurement (mass/volume) 33 g/dL 32-36 Automated erythrocyte distribution width ratio 14. 2 % 10.0- 14.5 Automated blood platelet count (count/volume) 288 10*3/uL 130-400 Automated blood platelet mean volume measurement 10.1 [foz_us] 7.4-10.4 Automated blood neutrophils/100 leukocytes 63 % 42-75 Automated blood lymphocytes/100 leukocytes 27 % 12-44 Blood monocytes/100 leukocytes 7 % 0-12 Automated blood eosinophils/100 leukocytes 1 % 0-10 Automated blood basophils/100 leukocytes 1 % 0-10 Blood neutrophils automated count (number/volume) 5.5 10*3 1.8-7.8 Blood lymphocytes automated count (number/volume) 2.4 10*3 1.0-4.0 Blood monocytes automated count (number/volume) 0. 6 10*3 0.0-1.0 Automated eosinophil count 0.1 10*3/uL 0 .0-0.3 Automated blood basophil count (count/volume) 0.1 10*3/uL 0.0-0.1 PT panel in platelet poor plasma by coag ulation assay - 08/16/19 10:54 Prothrombin time (PT) in platelet poor plasma by coagu lation assay 13.0 s 12.2-14.7 INR in platelet poor plasma or blood by coagulation as say 0.9 0.8-1.4 Activated partial thromboplastin time (a PTT) in platelet poor plasma bycoagulation assay - 08/16/19 10:54 Activated partial thromboplastin time (a PTT) in platelet poor plasma bycoagulation assay 24 s 24-35 Comprehensive metabolic panel - 08/16/19 10:54 Serum or plasma sodium measurement (moles/volume) 141 mmol/L 135-145 Serum or plasma potassium measurement (moles/volume) 4.5 mmol/L 3.6-5.0 Serum or plasma chloride measurement (moles/volume) 103 mmol/L 98-107 Carbon dioxide 28 mmol/L 21-32 Serum or plasma anion gap determination (moles/volume) 10 mmol/L 5-14 Serum or plasma urea nitrogen measurement (mass/volume ) 25 mg/dL 7-18 Serum or plasma creatinine measurement (mass/volume) 1.03 mg/dL 0.60-1.30 Serum or plasma urea nitrogen/creatinine mass ratio 24 NRG Serum or plasma creatinine measurement w ith calculation of estimated glomerular filtration rate 56 NRG Serum or plasma glucose measurement (mass/volume) 111 mg/dL 70-105 Serum or plasma calcium measurement (mass/volume) 9.5 mg/dL 8.5-10.1 Serum or plasma total bilirubin measurement (mass/volu me) 0.4 mg/dL 0.1-1.0 Serum or plasma alkaline phosphatase dennis surement (enzymatic activity/volume) 53 U/L 40-136 Serum or plasma aspartate aminotransfera se measurement (enzymatic activity/volume) 12 U/L 5-34 Serum or plasma alanine aminotransferase measurement (enzymatic activity/volume) 22 U/L 0-55 Serum or plasma protein measurement (mass/volume) 7.0 g/dL 6.4-8.2 Serum or plasma albumin measurement (mass/volume) 4.1 g/dL 3.2-4.5 CALCIUM CORRECTED 9.4 mg/dL 8.5-10.1 Magnesium - 08/16/19 10:54 Magnesium 2.1 mg/dL 1.6-2.4 TROPONIN I FS - 08/16/19 10:54 TROPONIN I FS < 0.30 <0.30 PROBNP FS - 08/16/19 10:54 PROBNP FS 1760.0 pg/mL <75.0 THYROID STIMULATING HORMONE - 08/17/19 0 9:49 THYROID STIMULATING HORMONE 1.71 u[iU]/mL 0.35-4.94 Whole blood basic metabolic panel - 03/30 06:15 Serum or plasma sodium measurement (moles/volume) 141 mmol/L 135-145 Serum or plasma potassium measurement (moles/volume) 4.2 mmol/L 3.6-5.0 Serum or plasma chloride measurement (moles/volume) 104 mmol/L 98-107 Carbon dioxide 25 mmol/L -32 Serum or plasma anion gap determination (moles/volume) 12 mmol/L 5-14 Serum or plasma urea nitrogen measurement (mass/volume ) 16 mg/dL 7-18 Serum or plasma creatinine measurement (mass/volume) 0.83 mg/dL 0.60-1.30 Serum or plasma urea nitrogen/creatinine mass ratio 19 NRG Serum or plasma creatinine measurement w ith calculation of estimated glomerular filtration rate > NRG Serum or plasma glucose measurement (mass/volume) 115 mg/dL 70-105 Serum or plasma calcium measurement (mass/volume) 9.4 mg/dL 8.5-10.1 TROPONIN I FS - 08/19/19 06:15 TROPONIN I FS < 0.30 <0.30 Encounters ACCT No. Visit Date/Time Discharge Status Pt. Type Provider Facility Loc./Unit Complaint [id number] 08/06/2019 10:40:00 08/06/2019 23:59: 59 CLS Outpatient ANNA BURGESS [facility] [id number] 06/20/2019 08:45:00 Document Registration [id number] 12/08/2018 09:00:00 Document Registration [id number] 08/19/2019 05:33:00 020 06:53:00 DIS Emergency EUNICE TRAVIS DO [facility] ER FS HIGH BLOOD PRESSURE [id number] 08/17/2019 09:42:00 23:59:59 CLS Outpatient FRIDA MADRIGAL FACC, JOHN CHRISTINE CC DS [facility] LAB FS I48.0 E66.8 I10 R29.818 [id number] 08/16/2019 10:08:00 020 12:10:00 DIS Emergency HEATHER BOSS DO [facility] ER FS IRREGULAR HEARTBEAT [id number] 11/26/2018 10:40:00 019 15:25:00 DIS Emergency EUNICE TRAVIS DO [facility] ER FS SWEATING,IRREGULAR HEAR T BEAT [id number] 08/31/2019 08:15:00 P EN Preadmit FRIDA MADRIGAL FACC, JOHN CHRISTINE CCDS [facility] CARD PAF,HT [id number] 08/27/2019 08:30:00 P EN Preadmit FRIDA MADRIGAL FACC, JOHN CHRISTINE CCDS [facility] CARD PAF,HT
== END 2019-08-19 06:53 | disposition home or self-care (01) ==
LOC: EDUNIT# 05:31 → ER FS 05:33
DX: I48.91 Unspecified atrial fibrillation (principal); I10 Essential (primary) hypertension; Z88.8 Allergy status to other drugs, medicaments and biological substances; Z88.5 Allergy status to narcotic agent; Z79.01 Long term (current) use of anticoagulants
CPT/HCPCS: 36415; 80048; 84484; 93005

== ENCOUNTER → 2020-06-10 | Outpatient (CLI) | payer SELFPAY ==
--- NOTE | 2020-06-10 09:45 | Diagnostic Imaging Report ---
PROCEDURE: CT head without contrast. TECHNIQUE: Multiple contiguous axial images were obtained through the brain without the use of intravenous contrast. Auto Exposure Controls were utilized during the CT exam to meet ALARA standards for radiation dose reduction. INDICATION: Right-sided mastoiditis and head pressure. No prior studies are available for comparison. FINDINGS: The ventricles and sulci are within normal limits. No sulcal effacement or midline shift is identified. No acute intra-axial or extra-axial hemorrhage is detected. Cisterns are patent. Visualized paranasal sinuses are clear. Mastoid air cells are also well aerated. No mastoid effusion or bony destructive changes to suggest mastoiditis are detected. IMPRESSION: Unremarkable noncontrast CT of the brain. No acute feature is detected. Dictated by: Dictated on workstation # [id number]
== END ==
LOC: RAD FS 09:20
PROVIDERS: ATTEND Nurse Practitioner Family
DX: H70.91 Unspecified mastoiditis, right ear (principal)
CPT/HCPCS: 70450

== ENCOUNTER 2020-06-17 15:43 | Emergency (ER) | payer SELFPAY ==
[~2020-06-17] VITALS: Ht 180.3 cm; Wt 136.8 kg
[2020-06-17] MEDS ORDERED: NS IV 1000 ML 1,000 ML IV SCH (16:00)
--- NOTE | 2020-06-17 16:17 | ED Cardiac General ---
History of Present Illness General Chief Complaint: Cardiac/General Problems Stated Complaint: A-FIB History of Present Illness Date Seen by Provider: Jun 17, 2020 Time Seen by Provider: 16:00 Allergies and Home Medications Allergies Coded Allergies: diphenhydramine (Verified Allergy, Unknown, 11/26/18) hydrocodone (Verified Allergy, Unknown, 08/19/19) Home Medications Apixaban 5 Mg Tablet, 5 MG PO BID TAKE 2 TABLETS BID X 7 DAYS, THEN 1 TABLET BID Prescribed by: HEATHER BOSS on 08/16/19 1200 Diltiazem HCl 180 Mg Tab.er.24h, 180 MG PO DAILY Prescribed by: HEATHER BOSS on 08/16/19 1200 Patient Home Medication List Home Medication List Reviewed: Yes Review of Systems Review of Systems Constitutional: No fever, No malaise, No weakness Respiratory: Denies Cough, Denies Orthopnea, Denies Shortness of Air Cardiovascular: See HPI; Denies Chest Pain, Denies Edema; Irregular Heart Rate; Denies Lightheadedness; Palpitations; Denies Syncope Gastrointestinal: Denies Abdominal Pain, Denies Nausea, Denies Vomiting Psychiatric/Neurological: Denies Headache, Denies Numbness, Denies Paresthesia Past Shfrydk-Zkjrgk-Xftkbb Hx Past Med/Social Hx: Reviewed Nursing Past Med/Soc Hx Patient Social History Alcohol Use: Denies Use Recreational Drug Use: No Smoking Status: Never a Smoker 2nd Hand Smoke Exposure: No Recent Foreign Travel: No Contact w/Someone Who Travel: No Recent Hopitalizations: No Physical Abuse: No Sexual Abuse: No Mistreated: No Fear: No Seasonal Allergies Seasonal Allergies: Yes Past Medical History Surgeries: Yes Gallbladder, Tonsillectomy Respiratory: No Cardiac: Yes Atrial Fibrillation, Hypertension Neurological: No Genitourinary: No Gastrointestinal: Yes Gastroesophageal Reflux, Hiatal Hernia Musculoskeletal: No Endocrine: No HEENT: No Cancer: No Psychosocial: Yes Anxiety Integumentary: No Blood Disorders: No Physical Exam Vital Signs Vital Signs - First Documented 06/17/20 15:49 Temp 37.1 Pulse 100 Resp 14 B/P (MAP) 185/107 (133) Pulse Ox 100 O2 Delivery Room Air Capillary Refill : Height, Weight, BMI Height: 5'11.00" Weight: 360lbs. oz. 163.198706bt; 42.00 BMI Method:Stated General Appearance: No Apparent Distress, WD/WN HEENT: PERRL/EOMI, Normal ENT Inspection Respiratory: Chest Non Tender, Lungs Clear, Normal Breath Sounds, No Respiratory Distress Cardiovascular: No Edema, No JVD, Normal Peripheral Pulses, Irregularly Irregular Gastrointestinal: Non Tender, Soft Extremity: Normal Capillary Refill, Normal Inspection, Non Tender Neurologic/Psychiatric: Alert, Oriented x3, No Motor/Sensory Deficits Skin: Normal Color, Warm/Dry Progress/Results/Core Measures Results/Orders Lab Results Laboratory Tests Test 06/17/20 15:53 Range/Units White Blood Count 10.4 4.3-11.0 10^3/uL Red Blood Count 4.78 4.35-5.85 10^6/uL Hemoglobin 14.5 11.5-16.0 G/DL Hematocrit 44 35-52 % Mean Corpuscular Volume 93 80-99 FL Mean Corpuscular Hemoglobin 30 25-34 PG Mean Corpuscular Hemoglobin Concent 33 32-36 G/DL Red Cell Distribution Width 13.6 10.0-14.5 % Platelet Count 277 130-400 10^3/uL Mean Platelet Volume 9.4 7.4-10.4 FL Immature Granulocyte % (Auto) 0 % Neutrophils (%) (Auto) 43 42-75 % Lymphocytes (%) (Auto) 48 H 12-44 % Monocytes (%) (Auto) 7 0-12 % Eosinophils (%) (Auto) 1 0-10 % Basophils (%) (Auto) 1 0-10 % Neutrophils # (Auto) 4.5 1.8-7.8 X 10^3 Lymphocytes # (Auto) 5.0 H 1.0-4.0 X 10^3 Monocytes # (Auto) 0.8 0.0-1.0 X 10^3 Eosinophils # (Auto) 0.1 0.0-0.3 10^3/uL Basophils # (Auto) 0.1 0.0-0.1 10^3/uL Immature Granulocyte # (Auto) 0.0 0.0-0.1 10^3/uL Neutrophils % (Manual) 42 % Lymphocytes % (Manual) 36 % Monocytes % (Manual) 6 % Eosinophils % (Manual) 1 % Basophils % (Manual) 1 % Band Neutrophils 1 % Atypical Lymphocytes 13 % Blood Morphology Comment NORMAL Sodium Level 139 135-145 MMOL/L Potassium Level 3.9 3.6-5.0 MMOL/L Chloride Level 101 98-107 MMOL/L Carbon Dioxide Level 26 21-32 MMOL/L Anion Gap 12 5-14 MMOL/L Blood Urea Nitrogen 21 H 7-18 MG/DL Creatinine 0.88 0.60-1.30 MG/DL Estimat Glomerular Filtration Rate > 60 BUN/Creatinine Ratio 24 Glucose Level 107 H 70-105 MG/DL Calcium Level 9.0 8.5-10.1 MG/DL Corrected Calcium 8.7 8.5-10.1 MG/DL Total Bilirubin 0.3 0.1-1.0 MG/DL Aspartate Amino Transf (AST/SGOT) 17 5-34 U/L Alanine Aminotransferase (ALT/SGPT) 34 0-55 U/L Alkaline Phosphatase 58 40-136 U/L Troponin I < 0.30 <0.30 NG/ML Total Protein 7.3 6.4-8.2 GM/DL Albumin 4.4 3.2-4.5 GM/DL My Orders Orders - ROVENSTINE,LAURENT L DO Ed Iv/Invasive Line Start (06/17/20 15:58) Comprehensive Metabolic Panel (06/17/20 15:58) Cbc With Automated Diff (06/17/20 15:58) Ekg Tracing (06/17/20 15:58) Chest 1 View Ap/Pa Only (06/17/20 15:58) Diltiazem Injection (Cardizem Injection) (06/17/20 16:00) Ns Iv 1000 Ml (Sodium Chloride 0.9%) (06/17/20 16:00) Diltiazem Injection (Cardizem Injection) (06/17/20 16:15) Manual Differential (06/17/20 15:53) Diltiazem Injection (Cardizem Injection) (06/17/20 16:45) Diltiazem Drip Pre-Mix (Cardizem Drip Pr (06/17/20 17:00) Thyroid Stimulating Hormone (06/17/20 17:47) Troponin I Fs (06/17/20 17:47) Amiodarone Injection (Cordarone Injectio (06/17/20 19:45) Amiodarone Injection (Cordarone Injectio (06/17/20 19:45) D5w 100 Ml Ivpb (Dextrose 5% Water Iv So (06/17/20 19:37) Amiodarone For Bolus (Cordarone Bolus) (06/17/20 19:37) Medications Given in ED Current Medications Medications Dose Ordered Sig/Eusebio Route Start Time Stop Time Status Last Admin Dose Admin Amiodarone HCl 150 mg/Dextrose 103 ml @ 600 mls/hr ONCE ONCE IV 06/17/20 19:45 06/17/20 19:55 DC 06/17/20 19:49 600 MLS/HR Vital Signs/I&O 06/17/20 06/17/20 15:49 19:33 Temp 37.1 Pulse 100 170 Resp 14 16 B/P (MAP) 185/107 (133) 137/72 Pulse Ox 100 97 O2 Delivery Room Air Room Air 06/18/20 00:00 Intake Total 1103 ml Balance 1103 ml Progress Progress Note : Progress Note unable to slow HR after 3 boluses of 15, 10 and 10mg diltiazem IV. Started gtt to help control rate. Prior to transfer patients HR still not slowing despite above and on Diltiazem @ 15mg gtt. Patient rate actually going faster and up to 160-170 for a prolonged period after walking to the restroom. Decided to start Amiodarone (as Dr Hill had suggested earlier) to stabilize pt HR prior to transfer to [facility]. At [place] f rom ER, pt stable, feeling fine and in no distress. HR 120-130's Initial ECG Impression Date: Jun 17, 2020 Initial ECG Impression Time: 15:50 Initial ECG Rate: 150 Initial ECG Rhythm: A Fib/Flutter Diagnostic Imaging Comments COMPARISON: None. FINDINGS: A single frontal view of the chest demonstrates normal heart size and pulmonary vascularity. The lungs are well aerated and clear. No large pleural effusion or pneumothorax is seen. The visualized osseous structures show no acute abnormalities. IMPRESSION: No acute cardiopulmonary process. Dictated on workstation # [id number] Dict: 06/17/20 1618 Trans: 06/17/20 1619 [id number] Interpreted by: GAURANG PHAN MD Electronically signed by: Departure Communication (Admissions) Time/Spoke to Admitting Phy: 17:[address] Gomez who accepts for admission, only then to find out afterward that there are no appropriate beds available in [place]. Time/Spoke to Consulting Phy: 17:10 [address] Hill- spoke to Dr Hill who was happy to consult. Advised to start amio, bolus, then gtt. Impression Primary Impression: Atrial fibrillation with RVR Disposition: XFER SHT-TRM HOSP Condition: Stable Admissions Decision to Admit Reason: Admit from ER (General) Decision to Admit/Date: Jun 17, 2020 Time/Decision to Admit Time: 17:00 Transfer Transfer Reason: Diversion (no cardiac beds available in [place]. ) Transfer Progress Notes Called "[facility] one call"(location of Dr Ruff, patients new Cardiology) Spoke to Sirena Millan NP, who accepts pt for Dr Gaines ([employer]) to [facility] @ [address] [employer] [employer] Advised, "not to start Amio" and to continue Diltiazem gtt. Method of Transfer: EMS Departure-Patient Inst. Referrals: ANNA BURGESS MD (PCP/Family) Primary Care Physician LAURENT BUCHANAN DO Jun 17, 2020 16:17
--- NOTE | 2020-06-17 16:20 | Diagnostic Imaging Report ---
INDICATION: Tachycardia. COMPARISON: None. FINDINGS: A single frontal view of the chest demonstrates normal heart size and pulmonary vascularity. The lungs are well aerated and clear. No large pleural effusion or pneumothorax is seen. The visualized osseous structures show no acute abnormalities. IMPRESSION: No acute cardiopulmonary process. Dictated by: Dictated on workstation # [id number]
[2020-06-17 16:22] LABS: BASOPHILS % (AUTO) 1 % (0-10); EOSINOPHILS % (AUTO) 1 % (0-10); HEMATOCRIT 44 % (35-52); HEMOGLOBIN 14.5 G/DL (11.5-16.0); LYMPHOCYTES % (AUTO) 48 % (12-44); MEAN CORPUSCULAR HEMOGLOBIN 30 PG (25-34); MEAN CORPUSCULAR HGB CONC 33 G/DL (32-36); MEAN CORPUSCULAR VOLUME 93 FL (80-99); MEAN PLATELET VOLUME 9.4 FL (7.4-10.4); MONOCYTES % (AUTO) 7 % (0-12); NEUTROPHILS # (AUTO) 4.5 X 10^3 (1.8-7.8); NEUTROPHILS % (AUTO) 43 % (42-75); PLATELET COUNT 277 10^3/uL (130-400); WHITE BLOOD COUNT 10.4 10^3/uL (4.3-11.0)
[2020-06-17 16:23] LABS: BAND NEUTROPHILS 1 %; BASOPHILS # (AUTO) 0.1 10^3/uL (0.0-0.1); BASOPHILS % (MANUAL) 1 %; EOSINOPHILS # (AUTO) 0.1 10^3/uL (0.0-0.3); EOSINOPHILS % (MANUAL) 1 %; LYMPHOCYTES % (MANUAL) 36 %; MONOCYTES # (AUTO) 0.8 X 10^3 (0.0-1.0); MONOCYTES % (MANUAL) 6 %; NEUTROPHILS % (MANUAL) 42 %
[2020-06-17 16:24] LABS: ATYPICAL LYMPHOCYTES 13 %; RBC MORPH NORMAL
[2020-06-17 16:28] LABS: ALANINE AMINOTRANSFERASE 34 U/L (0-55); ALKALINE PHOSPHATASE 58 U/L (40-136); BILIRUBIN,TOTAL 0.3 MG/DL (0.1-1.0); BUN/CREATININE RATIO 24; CARBON DIOXIDE 26 MMOL/L (21-32); CHLORIDE 101 MMOL/L (98-107); CREATININE SERUM 0.88 MG/DL (0.60-1.30); GFR ESTIMATED > 60; GLUCOSE 107 MG/DL (70-105); POTASSIUM 3.9 MMOL/L (3.6-5.0); SODIUM 139 MMOL/L (135-145)
[2020-06-17 16:29] LABS: ALBUMIN 4.4 GM/DL (3.2-4.5); TOTAL PROTEIN 7.3 GM/DL (6.4-8.2)
[2020-06-17] MEDS: dilTIAZem DRIP PRE-MIX 125 ML IV SCH ×2 (17:03→18:31)
[2020-06-17] MEDS ORDERED: AMIODARONE INJECTION 150 MG in D5W 100 ML IVPB 100 ML IV ONE ×2 (18:15→19:45)
[2020-06-17 19:33] VITALS: BP 137/72
[2020-06-17] MEDS ORDERED: AMIODARONE (BOLUS) 150 MG/3 ML IV ONE (19:37)
[2020-06-17] MEDS ORDERED: D5W 100 ML IVPB 100 ML IV ONE (19:37)
[2020-06-17] MEDS ORDERED: AMIODARONE INJECTION 450 MG in D5W IV SOLUTION (EXCEL) 250 ML IV SCH (19:45)
== END 2020-06-17 20:31 | disposition short-term general hospital (02) ==
LOC: EDUNIT# 15:43 → ER FS 15:44
DX: I48.20 Chronic atrial fibrillation, unspecified (principal); I10 Essential (primary) hypertension; Z88.5 Allergy status to narcotic agent; Z88.8 Allergy status to other drugs, medicaments and biological substances; Z79.01 Long term (current) use of anticoagulants
CPT/HCPCS: 36415; 71045; 80053; 84443; 84484; 85007; 85027; 93005

== ENCOUNTER 2020-07-02 16:34 | Emergency (ER) | payer SELFPAY ==
[~2020-07-02] VITALS: Ht 180.3 cm; Wt 133.2 kg
--- NOTE | 2020-07-02 16:45 | ED Cardiac General ---
History of Present Illness General Stated Complaint: AFIB,RAPID HEARTRATE Source: patient History of Present Illness Date Seen by Provider: Jul 02, 2020 Time Seen by Provider: 16:42 Initial Comments 55-year-old female presents with heart palpitations. Patient has a known history of atrial fib. She is on metoprolol succinate 25 mg daily. Patient was seen here recently due to atrial fib and had a medication change at the hospital from Cardizem to metoprolol. Patient admits to some increased stress today due to her father's today. She reports that symptoms started around 2 PM and haven't improved. She denies any increasing shortness of breath, no chest pain, no fevers chills nausea vomiting or other systemic complaints. Allergies and Home Medications Allergies Coded Allergies: diphenhydramine (Verified Allergy, Unknown, 11/26/18) hydrocodone (Verified Allergy, Unknown, 08/19/19) Home Medications Apixaban 5 Mg Tablet, 5 MG PO BID TAKE 2 TABLETS BID X 7 DAYS, THEN 1 TABLET BID Prescribed by: HEATEHR BOSS on 08/16/19 1200 Metoprolol Succinate 25 Mg Tab.er.24h, 25 MG PO DAILY, (Reported) Venlafaxine HCl 75 Mg Cap.er.24h, 75 MG PO DAILY, (Reported) Patient Home Medication List Home Medication List Reviewed: Yes Review of Systems Review of Systems Constitutional: No chills, No fever EENTM: No Symptoms Reported Respiratory: Denies Cough, Denies Shortness of Air Cardiovascular: Denies Chest Pain; Irregular Heart Rate, Palpitations; Denies Syncope Gastrointestinal: Denies Abdominal Pain, Denies Diarrhea, Denies Nausea, Denies Vomiting Musculoskeletal: no symptoms reported Skin: no symptoms reported Psychiatric/Neurological: No Symptoms Reported Endocrine: No Symptoms Reported Hematologic/Lymphatic: No Symptoms Reported Past [id number]-[id number] Hx Past Med/Social Hx: Reviewed Nursing Past Med/Soc Hx Patient Social History 2nd Hand Smoke Exposure: No Recent Foreign Travel: No Contact w/Someone Who Travel: No Recent Hopitalizations: No Seasonal Allergies Seasonal Allergies: Yes Past Medical History Surgeries: Yes Gallbladder, Tonsillectomy Respiratory: No Cardiac: Yes Atrial Fibrillation, Hypertension Neurological: No Genitourinary: No Gastrointestinal: Yes Gastroesophageal Reflux, Hiatal Hernia Musculoskeletal: No Endocrine: No HEENT: No Cancer: No Psychosocial: Yes Anxiety Integumentary: No Blood Disorders: No Physical Exam Vital Signs Vital Signs - First Documented 07/02/20 16:40 Temp 37.1 Pulse 160 Resp 20 B/P (MAP) 147/70 (95) Pulse Ox 98 O2 Delivery Room Air Capillary Refill : Height, Weight, BMI Height: 5'11.00" Weight: 360lbs. oz. [id number]; 42.00 BMI Method:Stated General Appearance: No Apparent Distress, Obese Respiratory: Lungs Clear, Normal Breath Sounds Cardiovascular: Irregularly Irregular, Tachycardia Gastrointestinal: Non Tender, Soft Extremity: Normal Capillary Refill, Normal Inspection Neurologic/Psychiatric: Alert, Oriented x3, Normal Mood/Affect, library circulation clerk II-XII Norm as Tested Skin: Normal Color, Warm/Dry Progress/Results/Core Measures Results/Orders Lab Results Laboratory Tests Test 07/02/20 16:50 Range/Units White Blood Count 7.1 4.3-11.0 10^3/uL Red Blood Count 4.50 4.35-5.85 10^6/uL Hemoglobin 13.6 11.5-16.0 G/DL Hematocrit 42 35-52 % Mean Corpuscular Volume 93 80-99 FL Mean Corpuscular Hemoglobin 30 25-34 PG Mean Corpuscular Hemoglobin Concent 33 32-36 G/DL Red Cell Distribution Width 14.0 10.0-14.5 % Platelet Count 223 130-400 10^3/uL Mean Platelet Volume 11.1 H 7.4-10.4 FL Immature Granulocyte % (Auto) 0 % Neutrophils (%) (Auto) 60 42-75 % Lymphocytes (%) (Auto) 28 12-44 % Monocytes (%) (Auto) 8 0-12 % Eosinophils (%) (Auto) 3 0-10 % Basophils (%) (Auto) 1 0-10 % Neutrophils # (Auto) 4.3 1.8-7.8 X 10^3 Lymphocytes # (Auto) 2.0 1.0-4.0 X 10^3 Monocytes # (Auto) 0.6 0.0-1.0 X 10^3 Eosinophils # (Auto) 0.2 0.0-0.3 10^3/uL Basophils # (Auto) 0.1 0.0-0.1 10^3/uL Immature Granulocyte # (Auto) 0.0 0.0-0.1 10^3/uL Sodium Level 142 135-145 MMOL/L Potassium Level 3.8 3.6-5.0 MMOL/L Chloride Level 107 98-107 MMOL/L Carbon Dioxide Level 26 21-32 MMOL/L Anion Gap 9 5-14 MMOL/L Blood Urea Nitrogen 18 7-18 MG/DL Creatinine 0.89 0.60-1.30 MG/DL Estimat Glomerular Filtration Rate > 60 BUN/Creatinine Ratio 20 Glucose Level 110 H 70-105 MG/DL Calcium Level 9.3 8.5-10.1 MG/DL Corrected Calcium 9.1 8.5-10.1 MG/DL Magnesium Level 2.0 1.6-2.4 MG/DL Total Bilirubin 0.2 0.1-1.0 MG/DL Aspartate Amino Transf (AST/SGOT) 24 5-34 U/L Alanine Aminotransferase (ALT/SGPT) 48 0-55 U/L Alkaline Phosphatase 85 40-136 U/L Total Protein 6.9 6.4-8.2 GM/DL Albumin 4.2 3.2-4.5 GM/DL My Orders Orders - QUISPE,SHIRLEY L DO Cbc With Automated Diff (07/02/20 16:46) Comprehensive Metabolic Panel (07/02/20 16:46) Magnesium (07/02/20 16:46) Chest 1 View Ap/Pa Only (07/02/20 16:46) Ekg Tracing (07/02/20 16:46) Metoprolol Tartrate Injection (Lopressor (07/02/20 17:00) Diltiazem Injection (Cardizem Injection) (07/02/20 17:15) Metoprolol Succinate (Xl) Tab (Toprol Xl (07/02/20 17:45) Metoprolol Tartrate Injection (Lopressor (07/02/20 18:15) Ed Iv/Invasive Line Start (07/02/20 18:55) Ns Iv 1000 Ml (Sodium Chloride 0.9%) (07/02/20 19:00) Lorazepam Injection (Ativan Injection) (07/02/20 19:00) Diltiazem Injection (Cardizem Injection) (07/02/20 19:30) Ekg Tracing (07/02/20 19:46) Diltiazem Cd 24 Hr Capsule (Cardizem Cd (12/24/20 09:00) Diltiazem Cd 24 Hr Capsule (Cardizem Cd (07/02/20 19:53) Medications Given in ED Current Medications Medications Dose Ordered Sig/Eusebio Route Start Time Stop Time Status Last Admin Dose Admin Diltiazem HCl 20 mg ONCE ONCE IVP 07/02/20 17:15 07/02/20 17:16 DC 07/02/20 17:21 20 MG Diltiazem HCl 20 mg ONCE ONCE IVP 07/02/20 19:30 07/02/20 19:31 DC 07/02/20 19:44 20 MG Diltiazem HCl 120 mg STK-MED ONCE PO 07/02/20 19:53 07/02/20 19:56 DC 07/02/20 20:03 120 MG Lorazepam 1 mg ONCE ONCE IVP 07/02/20 19:00 07/02/20 19:01 DC 07/02/20 19:07 1 MG Metoprolol Succinate 25 mg ONCE ONCE PO 07/02/20 17:45 07/02/20 17:46 DC 07/02/20 17:44 25 MG Metoprolol Tartrate 5 mg ONCE ONCE IV 07/02/20 17:00 07/02/20 17:01 DC 07/02/20 16:59 5 MG Metoprolol Tartrate 5 mg ONCE ONCE IV 07/02/20 18:15 07/02/20 18:16 DC 07/02/20 18:22 5 MG Vital Signs/I&O 07/02/20 16:40 Temp 37.1 Pulse 160 Resp 20 B/P (MAP) 147/70 (95) Pulse Ox 98 O2 Delivery Room Air Progress Progress Note : Progress Note Patient's heart rate improved significantly with treatment here in the ER. I did give her a dose of Cardizem XL 120 mg. I recommended she call her jewel inspector in the morning and consider some adjustments to her atrial fib dosing. I recommend she at least increase her metoprolol to 50 mg up from 25. Patient stable feeling seemingly better discharged home in stable condition Initial ECG Impression Date: Jul 02, 2020 Initial ECG Impression Time: 16:47 Initial ECG Rate: 161 Initial ECG Rhythm: A Fib/Flutter Initial ECG Impression: Atrial Fibrillation EKG : EKG Time: 18:52 Rhythm: A Fib/Flutter ECG Impression: Atrial Fibrillation Departure Impression Primary Impression: Chronic atrial fibrillation Disposition: 01 HOME, SELF-CARE Condition: Improved Departure-Patient Inst. Referrals: ANNA BURGESS MD (PCP/Family) Primary Care Physician Patient Instructions: Atrial Fibrillation Add. Discharge Instructions: Increase your metoprolol succinate to 50 mg daily Call your jewel inspector in the morning for further recommendations SHIRLEY QUISPE DO Jul 02, 2020 16:45
[2020-07-02] MEDS ORDERED: meTOprolol 5 MG/5 ML (LOPRESSOR) VIAL IV ONE ×2 (17:00→18:15)
[2020-07-02 17:01] LABS: BASOPHILS # (AUTO) 0.1 10^3/uL (0.0-0.1); BASOPHILS % (AUTO) 1 % (0-10); EOSINOPHILS # (AUTO) 0.2 10^3/uL (0.0-0.3); EOSINOPHILS % (AUTO) 3 % (0-10); HEMATOCRIT 42 % (35-52); HEMOGLOBIN 13.6 G/DL (11.5-16.0); LYMPHOCYTES % (AUTO) 28 % (12-44); MEAN CORPUSCULAR HEMOGLOBIN 30 PG (25-34); MEAN CORPUSCULAR HGB CONC 33 G/DL (32-36); MEAN CORPUSCULAR VOLUME 93 FL (80-99); MEAN PLATELET VOLUME 11.1 FL (7.4-10.4); MONOCYTES # (AUTO) 0.6 X 10^3 (0.0-1.0); MONOCYTES % (AUTO) 8 % (0-12); NEUTROPHILS # (AUTO) 4.3 X 10^3 (1.8-7.8); NEUTROPHILS % (AUTO) 60 % (42-75); PLATELET COUNT 223 10^3/uL (130-400); WHITE BLOOD COUNT 7.1 10^3/uL (4.3-11.0)
--- NOTE | 2020-07-02 17:07 | Diagnostic Imaging Report ---
INDICATION: Palpitations, tachycardia. EXAMINATION: Chest 07/02/2020. COMPARISON 06/17/2020 FINDINGS: The cardiomediastinal silhouette is unremarkable. The pulmonary vasculature is within normal limits. The lungs and pleural spaces are clear. IMPRESSION: No evidence of an acute cardiopulmonary process. Dictated by: Dictated on workstation # [id number]
[2020-07-02 17:23] LABS: ALANINE AMINOTRANSFERASE 48 U/L (0-55); ALBUMIN 4.2 GM/DL (3.2-4.5); ALKALINE PHOSPHATASE 85 U/L (40-136); BILIRUBIN,TOTAL 0.2 MG/DL (0.1-1.0); BUN/CREATININE RATIO 20; CALCIUM 9.3 MG/DL (8.5-10.1); CARBON DIOXIDE 26 MMOL/L (21-32); CHLORIDE 107 MMOL/L (98-107); CREATININE SERUM 0.89 MG/DL (0.60-1.30); GFR ESTIMATED > 60; GLUCOSE 110 MG/DL (70-105); POTASSIUM 3.8 MMOL/L (3.6-5.0); SODIUM 142 MMOL/L (135-145); TOTAL PROTEIN 6.9 GM/DL (6.4-8.2)
[2020-07-02] MEDS ORDERED: MTP25TSR PO (18:13)
[2020-07-02] MEDS ORDERED: VENL75CA93 PO (18:38)
[2020-07-02] MEDS ORDERED: LORazepam INJ 2 MG/ML (ATIVAN) VIAL IVP ONE (19:00)
[2020-07-02] MEDS ORDERED: NS IV 1000 ML 1,000 ML IV SCH (19:00)
[2020-07-02] MEDS ORDERED: dilTIAZem120 MG (CARDIZEM CD) CAP PO ONE (19:53)
[2020-07-02 20:19] VITALS: BP 101/59
[2020-07-03] MEDS ORDERED: dilTIAZem120 MG (CARDIZEM CD) CAP PO SCH (09:00)
== END 2020-07-02 20:19 | disposition home or self-care (01) ==
LOC: EDUNIT# 16:34 → ER FS 16:35
DX: I48.20 Chronic atrial fibrillation, unspecified (principal); I10 Essential (primary) hypertension; F41.9 Anxiety disorder, unspecified; E66.9 Obesity, unspecified; Z88.5 Allergy status to narcotic agent; Z88.8 Allergy status to other drugs, medicaments and biological substances; Z68.41 Body mass index [BMI] 40.0-44.9, adult; Z79.01 Long term (current) use of anticoagulants
CPT/HCPCS: 36415; 71045; 80053; 83735; 85025